=== PATIENT | female | born 1975 | race Caucasian/White ===

== ENCOUNTER 2017-06-05 12:16 | Emergency (ER) | payer BC ==
[2017-06-05 12:23] VITALS: TEMP 98
[2017-06-05 12:58] VITALS: O2SAT 98
[2017-06-05] MEDS ORDERED: Lactated Ringer's 1,000 ML IVB STA (13:18)
[2017-06-05 13:19] LABS: HEMOGLOBIN 11.6 g/dL (11.0-16.0); MEAN CELL VOLUME 75.6 fL (81.0-99.0); MEAN CORPUSCULAR HEMOGLOBIN 24.8 pg (27.0-31.0); MEAN CORPUSCULAR HGB CONC 32.8 g/dL (33.0-37.0); RBC 4.66 Mil/uL (3.80-5.20); RED CELL DISTRIBUTION WIDTH 22.2 % (11.5-14.5); WHITE BLOOD COUNT 9.7 K/uL (4.8-10.8)
[2017-06-05 13:27] LABS: HCG,QUALITATIVE URINE NEGATIVE (NEGATIVE)
[2017-06-05 13:30] LABS: SQUAMOUS EPITHIAL 3 /hpf (0-5); URINE BACTERIA RARE (<OCC); URINE BILIRUBIN NEGATIVE (NEGATIVE); URINE BLOOD NEGATIVE (NEGATIVE); URINE CLARITY Hazy (Clear); URINE COLOR Yellow (YELLOW); URINE GLUCOSE (UA) NORMAL (Normal); URINE LEUKOCYTE ESTERASE NEG Leu/uL (Negative); URINE PROTEIN 1+ mg/dL (NEGATIVE); URINE UROBILINOGEN NORMAL mg/dL (0.2-1.0)
[2017-06-05 13:34] LABS: ALBUMIN 4.2 g/dL (3.5-5.0); ALT/SGPT 20 U/L (9-52); AST/SGOT 22 U/L (14-36); BLOOD UREA NITROGEN 11 mg/dL (7-17); CALCIUM 9.2 mg/dl (8.6-10.4); GFR AFRICAN-AMERICAN > 60; GFR NON-AFRICAN AMERICAN > 60
--- NOTE | 2017-06-05 14:07 | C.PDOC ---
History Of Present Illness Pt had a near-syncopal episode while waiting at her doctor's office. Time Seen by Provider: 06/05/17 13:07 Chief Complaint (Nursing): Dizziness/Lightheaded History Per: Patient Onset/Duration Of Symptoms: Hrs (Just [employer]), Gradual Current Symptoms Are (Timing): Better Number Of Syncopal Episodes: 1 Associated Symptoms Preceding Syncopal Episode: Lightheadedness Fall Associated With With Symptoms: No Severity: Moderate Additional History Per: Prior Records - Symptoms Of CVA Recent Head Trauma: No Past Medical History Reviewed: Historical Data, Nursing Documentation, Vital Signs Vital Signs: Last Vital Signs Temp 98 F 06/05/17 12:20 Pulse 92 H 06/05/17 12:20 Resp 16 06/05/17 12:57 BP 177/95 H 06/05/17 12:57 Pulse Ox 98 06/05/17 14:08 - Medical History PMH: Anemia, Hypothyroidism - [facility] Procedures OTHER SKIN & SUBQ I D (11/16/12) Family History: States: Unknown Family Hx - Social History Hx Tobacco Use: No Hx Alcohol Use: No Hx Substance Use: No - Immunization History Hx Tetanus Toxoid Vaccination: No Hx Influenza Vaccination: No Hx Pneumococcal Vaccination: No Review Of Systems Except As Marked, All Systems Reviewed And Found Negative. Constitutional: Negative for: Fever Cardiovascular: Negative for: Chest Pain Respiratory: Negative for: Shortness of Breath, Hemoptysis Gastrointestinal: Positive for: Nausea, Vomiting (x1). Negative for: Abdominal Pain Genitourinary: Negative for: Dysuria Musculoskeletal: Negative for: Neck Pain Skin: Negative for: Rash Neurological: Negative for: Weakness, Numbness, Seizures, Headache Psych: Positive for: Anxiety. Negative for: Suicidal ideation Physical Exam - Physical Exam Appears: Non-toxic, No Acute Distress Skin: Normal Color, Warm, Dry, No Rash Head: Atraumatic, Normacephalic Eye(s): bilateral: Normal Inspection, PERRL, EOMI Neck: Normal ROM, Supple Cardiovascular: Rhythm Regular Respiratory: Normal Breath Sounds, No Accessory Muscle Use Gastrointestinal/Abdominal: Soft, No Tenderness Back: No CVA Tenderness Extremity: Normal ROM, No Pedal Edema, No Calf Tenderness Neurological/Psych: Oriented x3, Normal Speech, Normal Cognition, Normal Motor, Normal Sensation ED Course And Treatment - Laboratory Results Result Diagrams: 06/05/17 13:15 06/05/17 13:15 Lab Interpretation: No Acute Changes Urine POC: Negative ECG: Interpreted By Me, Viewed By Me ECG Rhythm: Sinus Rhythm, Nonspecific Changes ECG Interpretation: No Acute Changes Rate From EC O2 Sat by Pulse Oximetry: 98 Pulse Ox Interpretation: Normal Progress - Interventions Interventions:: Observation, Intravenous fluid - Data Reviewed Data Reviewed: Lab, EKG, Old records - Patient Status Patient status: Completely improved - Continuity of Care Discussed patient case with:: Patient, Family-HIPPA compliant, ED Nurse - Patient Plan Patient Plan: Discharge, F/U with PCP, Continue present meds Medical Decision Making Medical Decision Making: PERC rule negative. Disposition Counseled Patient/Family Regarding: Studies Performed, Diagnosis, Need For Followup - Disposition Referrals: Faheem Souza MD [Medical Doctor] - Disposition: HOME/ ROUTINE Disposition Time: 14:11 Condition: STABLE Additional Instructions: Drink plenty of fluids. Follow up with your doctor for further evaluation and treatment. Return to the ER if you pass out, develop chest pain, shortness of breath, palpitations, worsening of symptoms or if you have any other concerns. Instructions: Near Fainting (DC) Forms: [facility] (Georgian) - Clinical Impression Clinical Impression: Near syncope
[2017-06-05 14:11] VITALS: BP 111/72; PULSE 97; RESP 20
--- NOTE | 2017-06-07 12:29 | CARD ---
APPROVED REPORT EKG Measurement Heart [id number] <Conclusion> Normal sinus rhythm Nonspecific ST abnormality Abnormal ECG
== END 2017-06-05 15:00 | disposition home or self-care (01) ==
LOC: C.ER 12:16
DX: R55 Syncope and collapse (principal); E03.9 Hypothyroidism, unspecified
CPT/HCPCS: 80053; 81001; 84703; 85027; 99285; J7120

== ENCOUNTER 2018-02-12 09:14 | Emergency (ER) | payer BC ==
[2018-02-12 09:19] VITALS: TEMP 98.5; O2SAT 100
[2018-02-12] MEDS ORDERED: Sodium Chloride 0.9% 1,000 ML IV ONE (10:07)
[2018-02-12] MEDS ORDERED: DiphenhydrAMINE 50 mg/ml Inj IVP STA (10:07)
[2018-02-12] MEDS ORDERED: DiphenhydrAMINE 50 mg/ml Inj ONE (10:23)
--- NOTE | 2018-02-12 11:55 | C.PDOC ---
History Of Present Illness 43 year old female with a history of headaches presents to the ED for evaluation of frontal headache associated with nausea for 3-4 days. Patient reports taking Advil for the first few days with no improvement, notes the symptoms are similar to her previous headaches but her current headache is taking longer to resolve. Admits she has prescription glasses, not compliant with wearing glasses. Denies vomiting, photophobia, visual changes, facial droop, slurred speech, extremity weakness, and any other associated symptoms. Time Seen by Provider: 02/12/18 09:33 Chief Complaint (Nursing): Headache History Per: Patient History/Exam Limitations: no limitations Onset/Duration Of Symptoms: Days Current Symptoms Are (Timing): Still Present Past Medical History Reviewed: Historical Data, Nursing Documentation, Vital Signs Vital Signs: Last Vital Signs Temp 98.5 F 02/12/18 09:18 Pulse 92 H 02/12/18 09:18 Resp 18 02/12/18 09:18 BP 130/96 H 02/12/18 09:18 Pulse Ox 100 02/12/18 09:18 - Medical History PMH: Anemia, Hypothyroidism - [facility] Procedures OTHER SKIN & SUBQ I D (11/16/12) Family History: States: Unknown Family Hx - Social History Hx Tobacco Use: No Hx Alcohol Use: No Hx Substance Use: No - Immunization History Hx Tetanus Toxoid Vaccination: No Hx Influenza Vaccination: No Hx Pneumococcal Vaccination: No Review Of Systems Eyes: Negative for: Vision Change, Other (photophobia.) Gastrointestinal: Positive for: Nausea (secondary to headache.). Negative for: Vomiting Musculoskeletal: Negative for: Other (extremity weakness. ) Neurological: Positive for: Headache. Negative for: Other ((-) slurred speech. (-) facial droop.) Physical Exam - Physical Exam Appears: Non-toxic, Other (mild discomfort. ) Skin: Normal Color, Warm, Dry Head: Atraumatic, Normacephalic Eye(s): bilateral: Normal Inspection, PERRL, EOMI Neck: Normal ROM, Trachea Midline, Supple, No Other (meningismus.) Chest: Symmetrical, No Deformity Cardiovascular: Rhythm Regular, No Murmur Respiratory: Normal Breath Sounds, No Rales, No Rhonchi, No Wheezing Neurological/Psych: Oriented x3, Normal Speech, Normal Cranial Nerves, Normal Motor, Normal Sensation, Normal Reflexes, Other (normal [id number]. ) ED Course And Treatment O2 Sat by Pulse Oximetry: 100 (RA) Pulse Ox Interpretation: Normal Medical Decision Making Medical Decision Making: Plan: -Benadryl Reglan Toradol POC Urine Progress/Update: Patient stable for discharge home. Prescribed Fioicet. Disposition Counseled Patient/Family Regarding: Diagnosis, Need For Followup, Rx Given - Disposition Referrals: Faheem Souza MD [Medical Doctor] - Disposition: HOME/ ROUTINE Disposition Time: 11:50 Condition: STABLE Additional Instructions: FOLLOW UP WITH YOUR DOCTOR/CLINCIC IN 1-2 DAYS USE MEDICATION NEEDED FOR HEADACHES RETURN TO ER IF SYMPTOMS WORSEN Prescriptions: Acetaminophen/Butalbital/Caf [Fioricet] 1 tab PO TID PRN #20 tab PRN Reason: Headache Instructions: Headache, Adult (DC) Forms: [employer] (Mongolian) Print Language: SWAZI - POA Present On Arrival: None - Clinical Impression Clinical Impression: Headache - Scribe Statement The provider has reviewed the documentation as recorded by the Scribe (Carlyn Marquez) Provider Attestation: All medical record entries made by the Scribe were at my direction and personally dictated by me. I have reviewed the chart and agree that the record accurately reflects my personal performance of the history, physical exam, medical decision making, and the department course for this patient. I have also personally directed, reviewed, and agree with the discharge instructions and disposition.
[2018-02-13 00:06] VITALS: BP 113/68; PULSE 74; RESP 16
== END 2018-02-12 12:05 | disposition home or self-care (01) ==
LOC: C.ER 09:14
DX: R51 Headache (principal)
CPT/HCPCS: 96361; 96365; 96375; 99284; J1200; J1885; J2765; J7030

== ENCOUNTER 2018-04-02 15:51 | Outpatient (CLI) | payer BC | END 2018-04-02 15:52 | disposition home or self-care (01) | LOC: C.USIC 15:51 ==

== ENCOUNTER 2018-05-16 09:57 | Outpatient (CLI) | payer BC | END 2018-05-16 09:58 | disposition home or self-care (01) | LOC: C.MAMMO 09:57 | DX: Z12.39 Encounter for other screening for malignant neoplasm of breast (principal) ==

== ENCOUNTER 2018-06-11 11:42 | Outpatient (CLI) | payer BC | END 2018-06-11 11:43 | disposition home or self-care (01) | LOC: C.MAMMO 11:43 ==